=== PATIENT | male | born 1975 ===

== ENCOUNTER → 2023-09-24 | Day surgery (SDC) | payer OTHER ==
[~2023-09-24] MED LIST: CEFTRIAXONE SODIUM 2,000 MG VIAL IV ONE; DIBUCAINE 30 GM TUBE RECTAL ONE; HEMOSTATIC MATRIX 1 KIT KIT TOP ONE; METRONIDAZOLE/SODIUM CHLORIDE 500 MG/100 ML PIGGYBACK IV ONE; OXYC1TAB9 PO; SURGIFLO APPLICATOR 1 EACH APPL TOP ONE; TAMSULOSIN HCL 0.4 MG CAP PO ONE
== END | disposition home or self-care (01) ==
LOC: ADM 09-15 12:15 → CIR.AMB 06:30
PROVIDERS: ATTEND Surgery
DX: K64.2 Third degree hemorrhoids (principal); K64.4 Residual hemorrhoidal skin tags; K62.89 Other specified diseases of anus and rectum; K62.5 Hemorrhage of anus and rectum; Z91.02 Food additives allergy status